=== PATIENT | female | born 1945 ===

== ENCOUNTER 2018-06-06 07:56 | Emergency (ER) | payer MEDICARE ==
--- NOTE | 2018-06-06 08:32 | UC ---
Complaint Female HPI - HPI Summary HPI Summary: This is Daily madera, documenting for attending Enrike Chapman M.D. Pt is a 73 y/o F who presents to [facility] c/o urinary frequency for 2 days. Pt reports that last night she urinated 5x in the night, when usually she only gets up 2x. Sx aggravated and alleviated by nothing. Denies any pain, including dysuria and back pain. Denies fever, chills, diarrhea. Has not had a UTI in a long time, though she used to take Cipro to resolve. Had a physical with her PCP 2 weeks ago. - History Of Current Complaint Chief Complaint: UCGU Stated Complaint: UTI Time Seen by Provider: 06/06/18 08:25 Hx Obtained From: Patient Onset/Duration: Lasting Days - 2 days, Still Present Severity Currently: None Pain Intensity: 0 Pain Scale Used: 0-10 Numeric Aggravating Factor(s): Nothing Alleviating Factor(s): Nothing Associated Signs And Symptoms: Negative: Back Pain - Allergies/Home Medications Allergies/Adverse Reactions: Allergies Allergy/AdvReac Type Severity Reaction Status Date / Time Penicillins Allergy Rash Verified 06/06/18 08:17 Sulfa (Sulfonamide Allergy GI Upset Verified 06/06/18 08:17 Antibiotics) Home Medications: Home Medications Acyclovir* [Zovirax 400 MG TAB*] 1 tab PO BID 06/06/18 [History Confirmed ] Amlodipine Besylate [Norvasc 5 mg tab] 7.5 mg PO DAILY 06/06/18 [History Confirmed 06/06/18] buPROPion HCl [Wellbutrin Sr] 1 tab PO DAILY 06/06/18 [History Confirmed ] PMH/Surg Hx/FS Hx/Imm Hx Cardiovascular History: Hypertension Psychological History: Anxiety - Surgical History Surgical History: None - Family History Known Family History: Positive: Diabetes - Social History Alcohol Use: Occasionally Substance Use Type: Prescribed Smoking Status (MU): Never Smoked Tobacco Review of Systems Constitutional: Negative Skin: Negative Eyes: Negative ENT: Negative Respiratory: Negative Cardiovascular: Negative Gastrointestinal: Negative Genitourinary: Frequency Motor: Negative Neurovascular: Negative Musculoskeletal: Negative Neurological: Negative Psychological: Negative All Other Systems Reviewed And Are Negative: Yes - Comments Additional Review of Systems Comments: NEGATIVE: Dysuria, back pain, fever, chills, diarrhea Physical Exam - Summary Physical Exam Summary: General: well-appearing, no pain distress Skin: warm, color reflects adequate perfusion, dry Head: normal Eyes: EOMI, JENNY ENT: normal Neck: supple, nontender Respiratory: CTA, breath sounds present Cardiovascular: RRR Abdomen: soft, nontender Bowel: present Musculoskeletal: normal, strength/ROM intact Neurological: sensory/motor intact, A&O x3 Psychological: affect/mood appropriate Triage Information Reviewed: Yes Vital Signs: Initial Vital Signs Temp 98.4 F 06/06/18 08:12 Pulse 84 06/06/18 08:12 Resp 12 06/06/18 08:12 BP 148/85 06/06/18 08:12 Pulse Ox 98 06/06/18 08:12 Vital Signs Reviewed: Yes Complaint Female Dx - Course Course Of Treatment: Medications reviewed. Allergies noted. BP noted and advised to follow up with PCP. RX ABX. PATIENT WILL START IF SX CONTINUE OR WORSEN. F/U PMD; RECHECK SOONER IF WORSE. - Differential Dx/Diagnosis Provider Diagnoses: URINARY FREQUENCY. HEMATURIA. HTN Discharge - Sign-Out/Discharge Documenting (check all that apply): Patient Departure - Discharge - Discharge Plan Condition: Stable Disposition: HOME Prescriptions: Ciprofloxacin TAB* [Cipro 500 MG TAB*] 500 mg PO BID #14 tab Patient Education Materials: Hematuria (ED), Urinary Urgency and Frequency (DC) Referrals: [facility] [place] [facility] [Outside] Additional Instructions: FOLLOW UP WITH YOUR DOCTOR. GET RECHECKED FOR ANY WORSENING OF YOUR CONDITION OR QUESTIONS OR CONCERNS. - Billing Disposition and Condition Condition: STABLE Disposition: Home
== END 2018-06-06 08:45 | disposition home or self-care (01) ==
LOC: UCEAST 07:56
DX: R35.0 Frequency of micturition (principal); R31.9 Hematuria, unspecified; I10 Essential (primary) hypertension; Z88.0 Allergy status to penicillin; Z88.2 Allergy status to sulfonamides; F41.9 Anxiety disorder, unspecified
CPT/HCPCS: 81003; 87086; 99202; G0463